=== PATIENT | female | born 1975 | race Caucasian/White ===

== ENCOUNTER 2019-04-22 13:27 | Inpatient (IN) | payer OTHER ==
[~2019-04-22] VITALS: Ht 165.1 cm; Wt 76.2 kg
[2019-04-22] MEDS ORDERED: VANCOMYCIN 1 GM in IV D5W 250 ML IV ONE (14:30)
[2019-04-22] MEDS ORDERED: IV NS 0.9% 1,000 ML BAG IV ONE (14:30)
[2019-04-22] MEDS ORDERED: PIPERACILLIN /TAZOBACTAM 3.375 G in IV D5W 50 ML IV ONE (14:30)
[2019-04-22 14:35] LABS: BASOPHILS % (AUTO) 0.2 % (0.0-2.0); EOSINOPHILS % (AUTO) 0.4 % (0.0-6.0); HEMATOCRIT 32 % (33-45); HEMOGLOBIN 10.6 g/dL (11.5-14.8); LYMPHOCYTES # (AUTO) 2.7 /CMM (0.8-4.8); LYMPHOCYTES % (AUTO) 15.3 % (20.0-44.0); MEAN CORPUSCULAR HGB CONC 33 g/dl (31.0-36.0); MEAN CORPUSCULAR VOLUME 83 fL (82-100); MONOCYTES # (AUTO) 0.8 /CMM (0.1-1.30); MONOCYTES % (AUTO) 4.3 % (2.0-12.0); NEUTROPHILS # (AUTO) 14.3 /CMM (1.8-8.9); NEUTROPHILS % (AUTO) 79.8 % (43.0-81.0); PLATELET COUNT (AUTO) 429 /CMM (150-450); RED BLOOD CELL COUNT(AUTO) 3.84 MIL/uL (4.0-5.2); WHITE BLOOD COUNT (AUTO) 17.9 K/uL (4.3-11.0)
[2019-04-22] MEDS ORDERED: INSU100I14 SQ (15:01)
[2019-04-22 15:05] LABS: ALBUMIN 1.7 g/dL (3.4-5.0); BILIRUBIN,DIRECT 0.1 mg/dL (0.0-0.2); BILIRUBIN,TOTAL 0.3 mg/dL (0.2-1.0); CALCIUM, SERUM 8.2 mg/dL (8.5-10.1); POTASSIUM 4.3 mmol/L (3.5-5.1); TOTAL PROTEIN, SERUM 7.9 g/dL (6.4-8.2)
[2019-04-22] MEDS ORDERED: CT SWABBABLE VALVE TRANS SET 1 EA INFUS.SET MC ONE (15:41)
[2019-04-22] MEDS ORDERED: IV NS 0.9% 250 ML IV ONE (15:41)
[2019-04-22] MEDS ORDERED: IOHEXOL-300 100 ML VIAL IV ONE (15:41)
[2019-04-22] MEDS ORDERED: INSULIN REGULAR, HUMAN 100 UNIT/ML 10 ML VIAL ONE (17:14)
[2019-04-22] MEDS ORDERED: INSULIN REGULAR, HUMAN 100 UNIT/ML 10 ML VIAL SQ ONE (17:30)
[2019-04-22 18:20] VITALS: BP 119/78
[2019-04-22 20:00] VITALS: BP 111/65
[2019-04-22] MEDS ORDERED: ONDANSETRON HCL/PF 4 MG/2 ML VIAL IVP PRN (20:00)
[2019-04-22] MEDS ORDERED: DEXTROSE 50%-WATER 50 ML DISP.SYRIN IV PRN (20:00)
[2019-04-22] MEDS ORDERED: ACETAMINOPHEN 325 MG TABLET PO PRN (20:00)
[2019-04-22] MEDS ORDERED: MAGNESIUM HYDROXIDE 30 ML UDC PO PRN (20:00)
[2019-04-22] MEDS ORDERED: Z GUARD REMEDY 2 OZ OINT TP PRN (20:00)
[2019-04-22] MEDS ORDERED: ZOLPIDEM TARTRATE 5 MG TABLET PO PRN (20:00)
[2019-04-22] MEDS ORDERED: KETOROLAC TROMETHAMINE INJ 30 MG/ML VIAL IV PRN (20:00)
[2019-04-22] MEDS: MORPHINE SULFATE INJ 2 MG/ML DISP.SYRIN IV PRN (20:02)
[2019-04-22] MEDS ORDERED: FEE PK DOSING 1 MIN EA MC ONE (20:05)
[2019-04-22 20:32] VITALS: BP 111/65
[2019-04-22] MEDS: PIPERACILLIN /TAZOBACTAM 3.375 G in IV D5W 100 ML IV SCH (20:54)
[2019-04-22] MEDS: VANCOMYCIN 0.75 GM in IV D5W 250 ML IV SCH (21:15)
[2019-04-22] MEDS: HYDROCODONE/APAP 5/325MG 1 EACH TABLET PO PRN (21:50)
[2019-04-22] MEDS: BLOOD SUGAR DIAGNOSTIC 1 EACH STRIP VI SCH (22:31)
[2019-04-22] MEDS: *INSULIN REGULAR(HUMULIN R)HUM 100 UNIT/ML VIAL SQ PRN (22:33)
[2019-04-22] MEDS: IV NS 0.9% 1,000 ML IV PRN (22:38)
[2019-04-23] MEDS: MORPHINE SULFATE INJ 2 MG/ML DISP.SYRIN IV PRN ×2 (00:23→15:07)
[2019-04-23] MEDS: IV NS 0.9% 1,000 ML IV PRN ×3 (03:40→22:33)
[2019-04-23] MEDS: PIPERACILLIN /TAZOBACTAM 3.375 G in IV D5W 100 ML IV SCH ×2 (04:03→12:26)
[2019-04-23] MEDS: HYDROCODONE/APAP 5/325MG 1 EACH TABLET PO PRN ×3 (04:42→20:40)
[2019-04-23 04:57] LABS: APPEARANCE,URINE SL CLOUDY (CLEAR); BILIRUBIN,URINE NEGATIVE (NEGATIVE); BLOOD, URINE 2+ Ery/uL (NEGATIVE); COLOR,URINE YELLOW (YELLOW); KETONES,URINE NEGATIVE (NEGATIVE); LEUKOCYTE ESTERASE ,URINE NEGATIVE (NEGATIVE); NITRITE, URINE NEGATIVE (NEGATIVE); PROTEIN,URINE 1+ mg/dl (NEGATIVE); UGLUCOSE 3+ mg/dL (NEGATIVE); UROBILINOGEN,URINE 0.2 EU/dL (0.2)
[2019-04-23 05:05] LABS: BACTERIA,URINE Few /HPF (None Seen); RBC,URINE 21-50 /HPF (0-2); SQUAMOUS EPITHELIAL CELL,UR Few /HPF (None Seen); WBC,URINE 21-50 /HPF (0-3)
[2019-04-23] MEDS: VANCOMYCIN 0.75 GM in IV D5W 250 ML IV SCH ×3 (05:05→21:00)
[2019-04-23] MEDS: BLOOD SUGAR DIAGNOSTIC 1 EACH STRIP VI SCH ×4 (06:34→21:00)
[2019-04-23] MEDS: INSULIN REGULAR, HUMAN 100 UNIT/ML 3 ML VIAL SQ PRN ×3 (06:38→17:50)
[2019-04-23 08:00] VITALS: BP 110/66
[2019-04-23 09:42] LABS: BASOPHILS # (AUTO) 0.1 /CMM (0.0-0.2); BASOPHILS % (AUTO) 0.4 % (0.0-2.0); EOSINOPHILS % (AUTO) 1.6 % (0.0-6.0); HEMATOCRIT 29 % (33-45); HEMOGLOBIN 9.8 g/dL (11.5-14.8); LYMPHOCYTES # (AUTO) 3.8 /CMM (0.8-4.8); LYMPHOCYTES % (AUTO) 21.7 % (20.0-44.0); MEAN CORPUSCULAR HGB CONC 33 g/dl (31.0-36.0); MEAN CORPUSCULAR VOLUME 83 fL (82-100); MONOCYTES # (AUTO) 0.8 /CMM (0.1-1.30); MONOCYTES % (AUTO) 4.4 % (2.0-12.0); NEUTROPHILS # (AUTO) 12.7 /CMM (1.8-8.9); NEUTROPHILS % (AUTO) 71.9 % (43.0-81.0); PLATELET COUNT (AUTO) 426 /CMM (150-450); RED BLOOD CELL COUNT(AUTO) 3.54 MIL/uL (4.0-5.2); WHITE BLOOD COUNT (AUTO) 17.7 K/uL (4.3-11.0)
[2019-04-23] MEDS: LOSARTAN POTASSIUM 50 MG TABLET PO SCH (09:43)
[2019-04-23 09:53] LABS: CALCIUM, SERUM 7.7 mg/dL (8.5-10.1); CREATININE 0.9 mg/dL (0.6-1.3); MAGNESIUM 1.4 mg/dL (1.8-2.4); PHOSPHORUS 2.2 mg/dL (2.5-4.9); POTASSIUM 3.8 mmol/L (3.5-5.1)
[2019-04-23 10:04] LABS: THYROID STIMULATING HORMONE 1.875 uIU/mL (0.358-3.74)
[2019-04-23] MEDS ORDERED: K PHOS NEUTRAL 250 MG TABLET PO ONE (13:30)
[2019-04-23 16:00] VITALS: BP 116/75
[2019-04-23] MEDS ORDERED: ZOSYN IVPB 3.375 G in IV D5W 50ml IV SCH (18:00)
[2019-04-23 20:00] VITALS: BP 132/76
[2019-04-23 20:01] VITALS: BP 132/74
[2019-04-23] MEDS: *INSULIN REGULAR(HUMULIN R)HUM 100 UNIT/ML VIAL SQ PRN (21:08)
[2019-04-23] MEDS: ZOSYN IVPB 3.375 G in IV D5W 50ml IV SCH (23:04)
[2019-04-24] MEDS: MORPHINE SULFATE INJ 2 MG/ML DISP.SYRIN IV PRN ×3 (04:42→22:05)
[2019-04-24] MEDS: ZOSYN IVPB 3.375 G in IV D5W 50ml IV SCH ×4 (05:02→23:59)
[2019-04-24] MEDS: VANCOMYCIN 0.75 GM in IV D5W 250 ML IV SCH ×3 (05:38→22:38)
[2019-04-24] MEDS: BLOOD SUGAR DIAGNOSTIC 1 EACH STRIP VI SCH ×4 (05:48→21:45)
[2019-04-24] MEDS: INSULIN REGULAR, HUMAN 100 UNIT/ML 3 ML VIAL SQ PRN ×3 (05:55→18:01)
[2019-04-24 08:00] VITALS: BP 121/74
[2019-04-24] MEDS: LOSARTAN POTASSIUM 50 MG TABLET PO SCH (08:36)
[2019-04-24 16:00] VITALS: BP 133/86
[2019-04-24 16:50] LABS: BASOPHILS % (AUTO) 0.2 % (0.0-2.0); EOSINOPHILS % (AUTO) 1.6 % (0.0-6.0); HEMATOCRIT 31 % (33-45); HEMOGLOBIN 10.5 g/dL (11.5-14.8); LYMPHOCYTES % (AUTO) 27.5 % (20.0-44.0); MEAN CORPUSCULAR HGB CONC 34 g/dl (31.0-36.0); MEAN CORPUSCULAR VOLUME 82 fL (82-100); MONOCYTES % (AUTO) 5.4 % (2.0-12.0); NEUTROPHILS % (AUTO) 65.3 % (43.0-81.0); PLATELET COUNT (AUTO) 528 /CMM (150-450); WHITE BLOOD COUNT (AUTO) 12.1 K/uL (4.3-11.0)
[2019-04-24 16:51] LABS: LYMPHOCYTES # (AUTO) 3.3 /CMM (0.8-4.8); MONOCYTES # (AUTO) 0.6 /CMM (0.1-1.30); NEUTROPHILS # (AUTO) 7.9 /CMM (1.8-8.9)
[2019-04-24 17:00] LABS: CALCIUM, SERUM 8.3 mg/dL (8.5-10.1); MAGNESIUM 1.4 mg/dL (1.8-2.4); PHOSPHORUS 2.9 mg/dL (2.5-4.9); POTASSIUM 3.8 mmol/L (3.5-5.1)
[2019-04-24] MEDS: FLUCONAZOLE (100 MG) 100 MG TABLET PO SCH (18:42)
[2019-04-24] MEDS: Magnesium 1GM/D5W 100ML PREMIX 100 ML IV SCH ×4 (18:42→22:50)
[2019-04-24 19:14] LABS: BILIRUBIN,DIRECT 0.1 mg/dL (0.0-0.2); BILIRUBIN,TOTAL 0.2 mg/dL (0.2-1.0); TOTAL PROTEIN, SERUM 7.5 g/dL (6.4-8.2)
[2019-04-24 19:22] LABS: ALBUMIN 1.4 g/dL (3.4-5.0)
[2019-04-24 20:00] VITALS: BP 132/82
[2019-04-24] MEDS: MUPIROCIN OINT 2% 22 GM TUBE SCH (20:35)
[2019-04-24] MEDS: IV NS 0.9% 1,000 ML IV PRN (21:44)
[2019-04-24] MEDS: *INSULIN REGULAR(HUMULIN R)HUM 100 UNIT/ML VIAL SQ PRN (22:17)
[2019-04-25] MEDS: ZOSYN IVPB 3.375 G in IV D5W 50ml IV SCH ×3 (05:04→17:16)
[2019-04-25 05:23] LABS: CREATININE, URINE 18.6 MG/DL (30.0-125.0); URINE TOTAL PROTEIN 28.3 mg/dL (0-11.9)
[2019-04-25] MEDS: VANCOMYCIN 0.75 GM in IV D5W 250 ML IV SCH ×3 (05:39→21:50)
[2019-04-25] MEDS: BLOOD SUGAR DIAGNOSTIC 1 EACH STRIP VI SCH ×4 (06:43→22:02)
[2019-04-25] MEDS: INSULIN REGULAR, HUMAN 100 UNIT/ML 3 ML VIAL SQ PRN ×4 (06:45→21:48)
[2019-04-25 08:00] VITALS: BP 117/78
[2019-04-25] MEDS: FLUCONAZOLE (100 MG) 100 MG TABLET PO SCH (08:40)
[2019-04-25] MEDS: LOSARTAN POTASSIUM 50 MG TABLET PO SCH (08:40)
[2019-04-25] MEDS: MUPIROCIN OINT 2% 22 GM TUBE SCH ×2 (08:44→22:02)
[2019-04-25 12:07] LABS: *SPE A/G RATIO 0.4 (0.7-1.7); *SPE ALBUMIN 1.9 g/dL (2.9-4.4); *SPE ALPHA-1-GLOBULIN 0.4 g/dL (0.0-0.4); *SPE ALPHA-2-GLOBULIN 0.9 g/dL (0.4-1.0); *SPE GLOBULIN, TOTAL 4.9 g/dL (2.2-3.9); *SPE M-SPIKE Not Observed g/dL (Not Observed); *SPEGAMMA GLOBULIN 2.5 g/dL (0.4-1.8)
[2019-04-25 13:08] LABS: PTH, INTACT 20 pg/mL (15-65)
[2019-04-25 15:55] LABS: CALCIUM, SERUM 7.9 mg/dL (8.5-10.1); CREATININE 0.9 mg/dL (0.6-1.3); POTASSIUM 4.1 mmol/L (3.5-5.1)
[2019-04-25 16:00] VITALS: BP 131/70
[2019-04-25] MEDS: IV NS 0.9% 1,000 ML IV PRN (17:21)
[2019-04-25 20:00] VITALS: BP 118/69
[2019-04-25] MEDS: HYDROCODONE/APAP 5/325MG 1 EACH TABLET PO PRN (21:51)
[2019-04-26] MEDS: ZOSYN IVPB 3.375 G in IV D5W 50ml IV SCH ×5 (00:37→23:01)
[2019-04-26] MEDS: IV NS 0.9% 1,000 ML IV PRN ×2 (05:16→17:14)
[2019-04-26] MEDS: VANCOMYCIN 0.75 GM in IV D5W 250 ML IV SCH ×3 (05:36→21:06)
[2019-04-26] MEDS: HYDROCODONE/APAP 5/325MG 1 EACH TABLET PO PRN ×2 (05:36→20:58)
[2019-04-26] MEDS: BLOOD SUGAR DIAGNOSTIC 1 EACH STRIP VI SCH ×4 (07:45→21:05)
[2019-04-26] MEDS: INSULIN REGULAR, HUMAN 100 UNIT/ML 3 ML VIAL SQ PRN ×3 (07:49→17:08)
[2019-04-26] MEDS: FLUCONAZOLE (100 MG) 100 MG TABLET PO SCH (08:58)
[2019-04-26] MEDS: LOSARTAN POTASSIUM 50 MG TABLET PO SCH (08:58)
[2019-04-26] MEDS: MUPIROCIN OINT 2% 22 GM TUBE SCH ×2 (08:59→21:06)
[2019-04-26 13:54] LABS: CALCIUM, SERUM 8.4 mg/dL (8.5-10.1); POTASSIUM 3.9 mmol/L (3.5-5.1)
[2019-04-26 15:00] VITALS: BP 122/71
[2019-04-26] MEDS: MORPHINE SULFATE INJ 2 MG/ML DISP.SYRIN IV PRN (15:44)
[2019-04-26 20:00] VITALS: BP 127/92
[2019-04-26] MEDS: *INSULIN REGULAR(HUMULIN R)HUM 100 UNIT/ML VIAL SQ PRN (21:11)
[2019-04-27] MEDS: IV NS 0.9% 1,000 ML IV PRN ×2 (01:37→16:01)
[2019-04-27] MEDS: MORPHINE SULFATE INJ 2 MG/ML DISP.SYRIN IV PRN ×2 (01:46→21:12)
[2019-04-27] MEDS: ZOSYN IVPB 3.375 G in IV D5W 50ml IV SCH ×4 (05:07→23:02)
[2019-04-27] MEDS: VANCOMYCIN 0.75 GM in IV D5W 250 ML IV SCH (05:43)
[2019-04-27] MEDS: HYDROCODONE/APAP 5/325MG 1 EACH TABLET PO PRN (05:45)
[2019-04-27] MEDS: BLOOD SUGAR DIAGNOSTIC 1 EACH STRIP VI SCH ×4 (06:20→21:33)
[2019-04-27] MEDS: INSULIN REGULAR, HUMAN 100 UNIT/ML 3 ML VIAL SQ PRN ×3 (06:22→17:49)
[2019-04-27 08:00] VITALS: BP 120/72
[2019-04-27] MEDS: FLUCONAZOLE (100 MG) 100 MG TABLET PO SCH (08:42)
[2019-04-27] MEDS: MUPIROCIN OINT 2% 22 GM TUBE SCH ×2 (08:42→21:13)
[2019-04-27] MEDS: LOSARTAN POTASSIUM 50 MG TABLET PO SCH (08:42)
[2019-04-27] MEDS: VANCOMYCIN 500 MG in IV D5W 100 ML IV SCH ×2 (15:06→22:11)
[2019-04-27 16:14] VITALS: BP 124/86
[2019-04-27 20:00] VITALS: BP 131/66
[2019-04-27] MEDS: *INSULIN REGULAR(HUMULIN R)HUM 100 UNIT/ML VIAL SQ PRN (21:36)
[2019-04-28] MEDS: IV NS 0.9% 1,000 ML IV PRN (01:29)
[2019-04-28] MEDS: MORPHINE SULFATE INJ 2 MG/ML DISP.SYRIN IV PRN (01:49)
[2019-04-28] MEDS: ZOSYN IVPB 3.375 G in IV D5W 50ml IV SCH ×4 (05:06→23:35)
[2019-04-28] MEDS: BLOOD SUGAR DIAGNOSTIC 1 EACH STRIP VI SCH ×4 (05:52→21:44)
[2019-04-28] MEDS: INSULIN REGULAR, HUMAN 100 UNIT/ML 3 ML VIAL SQ PRN ×3 (06:01→18:47)
[2019-04-28] MEDS: VANCOMYCIN 500 MG in IV D5W 100 ML IV SCH ×3 (06:03→22:01)
[2019-04-28 08:19] VITALS: BP 131/89
[2019-04-28] MEDS: FLUCONAZOLE (100 MG) 100 MG TABLET PO SCH (09:45)
[2019-04-28] MEDS: LOSARTAN POTASSIUM 50 MG TABLET PO SCH (09:46)
[2019-04-28] MEDS: HYDROCODONE/APAP 5/325MG 1 EACH TABLET PO PRN ×2 (09:50→19:51)
[2019-04-28] MEDS: MUPIROCIN OINT 2% 22 GM TUBE SCH ×2 (09:51→21:39)
[2019-04-28 09:53] LABS: IRON, SERUM 63 ug/dl (50-175); TOTAL IRON BINDING CAPACITY 220 ug/dl (250-450)
[2019-04-28 10:17] LABS: CALCIUM, SERUM 8.9 mg/dL (8.5-10.1)
[2019-04-28 10:19] LABS: FERRITIN 128 ng/mL (8-388)
[2019-04-28 16:00] VITALS: BP 108/75
[2019-04-28 20:50] VITALS: BP 128/73
[2019-04-28] MEDS: *INSULIN REGULAR(HUMULIN R)HUM 100 UNIT/ML VIAL SQ PRN (21:39)
[2019-04-29] MEDS: IV NS 0.9% 1,000 ML IV PRN ×2 (03:25→20:51)
[2019-04-29] MEDS: ZOSYN IVPB 3.375 G in IV D5W 50ml IV SCH ×4 (05:03→23:28)
[2019-04-29 05:06] LABS: *PEUR ALPHA-1-GLOBULIN 4.4 % (.); *PEUR ALPHA-2-GLOBULIN 7.8 % (.); *PEUR BETA GLOBULIN 27.6 % (.); *PEUR GAMMA GLOBULIN 42.1 % (.)
[2019-04-29] MEDS: BLOOD SUGAR DIAGNOSTIC 1 EACH STRIP VI SCH ×4 (06:38→21:15)
[2019-04-29] MEDS: INSULIN REGULAR, HUMAN 100 UNIT/ML 3 ML VIAL SQ PRN ×3 (06:44→17:10)
[2019-04-29 06:53] LABS: BASOPHILS % (AUTO) 0.4 % (0.0-2.0); HEMATOCRIT 33 % (33-45); HEMOGLOBIN 11.1 g/dL (11.5-14.8); LYMPHOCYTES # (AUTO) 4.1 /CMM (0.8-4.8); LYMPHOCYTES % (AUTO) 36.4 % (20.0-44.0); MEAN CORPUSCULAR HGB CONC 34 g/dl (31.0-36.0); MEAN CORPUSCULAR VOLUME 83 fL (82-100); MONOCYTES # (AUTO) 0.5 /CMM (0.1-1.30); MONOCYTES % (AUTO) 4.7 % (2.0-12.0); NEUTROPHILS # (AUTO) 6.4 /CMM (1.8-8.9); NEUTROPHILS % (AUTO) 56.5 % (43.0-81.0); PLATELET COUNT (AUTO) 566 /CMM (150-450); RED BLOOD CELL COUNT(AUTO) 4.01 MIL/uL (4.0-5.2); WHITE BLOOD COUNT (AUTO) 11.4 K/uL (4.3-11.0)
[2019-04-29 07:24] LABS: CALCIUM, SERUM 8.5 mg/dL (8.5-10.1); CREATININE 0.9 mg/dL (0.6-1.3); POTASSIUM 4.3 mmol/L (3.5-5.1)
[2019-04-29] MEDS: VANCOMYCIN 500 MG in IV D5W 100 ML IV SCH ×3 (07:34→22:05)
[2019-04-29 08:00] VITALS: BP 105/70
[2019-04-29 08:18] LABS: IRON, SERUM 54 ug/dl (50-175); TOTAL IRON BINDING CAPACITY 244 ug/dl (250-450)
[2019-04-29 08:27] LABS: FERRITIN 118 ng/mL (8-388)
[2019-04-29] MEDS: LOSARTAN POTASSIUM 50 MG TABLET PO SCH (08:53)
[2019-04-29] MEDS: FLUCONAZOLE (100 MG) 100 MG TABLET PO SCH (08:53)
[2019-04-29] MEDS: MUPIROCIN OINT 2% 22 GM TUBE SCH ×2 (08:59→20:07)
[2019-04-29 12:00] VITALS: BP 145/78
[2019-04-29] MEDS: MORPHINE SULFATE INJ 2 MG/ML DISP.SYRIN IV PRN (12:44)
[2019-04-29 16:00] VITALS: BP_SYST 109; BP_SYST 114; BP_DIAS 65; BP_DIAS 68
[2019-04-29 20:00] VITALS: BP 129/84
[2019-04-29] MEDS: HYDROCODONE/APAP 5/325MG 1 EACH TABLET PO PRN (20:03)
[2019-04-29] MEDS: *INSULIN REGULAR(HUMULIN R)HUM 100 UNIT/ML VIAL SQ PRN (21:14)
[2019-04-30] MEDS: ZOSYN IVPB 3.375 G in IV D5W 50ml IV SCH ×3 (05:07→18:13)
[2019-04-30] MEDS: MORPHINE SULFATE INJ 2 MG/ML DISP.SYRIN IV PRN (05:13)
[2019-04-30] MEDS: VANCOMYCIN 500 MG in IV D5W 100 ML IV SCH ×2 (06:02→13:45)
[2019-04-30] MEDS: INSULIN REGULAR, HUMAN 100 UNIT/ML 3 ML VIAL SQ PRN ×3 (06:17→18:21)
[2019-04-30] MEDS: BLOOD SUGAR DIAGNOSTIC 1 EACH STRIP VI SCH ×3 (06:37→18:14)
[2019-04-30 07:57] LABS: CALCIUM, SERUM 8.1 mg/dL (8.5-10.1); POTASSIUM 4.4 mmol/L (3.5-5.1)
[2019-04-30 08:00] VITALS: BP 107/65
[2019-04-30] MEDS: FLUCONAZOLE (100 MG) 100 MG TABLET PO SCH (10:14)
[2019-04-30] MEDS: LOSARTAN POTASSIUM 50 MG TABLET PO SCH (10:15)
[2019-04-30] MEDS: MUPIROCIN OINT 2% 22 GM TUBE SCH (10:15)
[2019-04-30] MEDS: HYDROCODONE/APAP 5/325MG 1 EACH TABLET PO PRN (12:26)
[2019-04-30 16:03] VITALS: BP 101/60
[2019-04-30] MEDS ORDERED: LACTOBACILLUS RHAMNOSUS GG 1 EACH CAP.SPRINK PO SCH (17:00)
[2019-04-30] MEDS: IV NS 0.9% 1,000 ML IV PRN (18:22)
== END 2019-04-30 19:17 | DRG 720 ==
LOC: ER 13:34 → MED 17:25
PROVIDERS: ADMIT Nurse Practitioner Acute Care; ATTEND Hospitalist
PROC: B548ZZA Ultrasonography of Superior Vena Cava, Guidance (ICD-10-PCS; principal; 2019-04-29)
PROC: 02HV33Z Insertion of Infusion Device into Superior Vena Cava, Percutaneous Approach (ICD-10-PCS; principal; 2019-04-29)
DX: A41.9 Sepsis, unspecified organism (principal); E43 Unspecified severe protein-calorie malnutrition; E11.69 Type 2 diabetes mellitus with other specified complication; E11.65 Type 2 diabetes mellitus with hyperglycemia; L02.213 Cutaneous abscess of chest wall; E87.1 Hypo-osmolality and hyponatremia; L03.313 Cellulitis of chest wall; M00.9 Pyogenic arthritis, unspecified; Z79.4 Long term (current) use of insulin; F41.9 Anxiety disorder, unspecified; F32.9 Major depressive disorder, single episode, unspecified; N12 Tubulo-interstitial nephritis, not specified as acute or chronic; Z90.710 Acquired absence of both cervix and uterus; D64.9 Anemia, unspecified; D63.8 Anemia in other chronic diseases classified elsewhere; M86.9 Osteomyelitis, unspecified; L02.11 Cutaneous abscess of neck; F15.90 Other stimulant use, unspecified, uncomplicated
CPT/HCPCS: 36415; 36569; 71045-TC; 71260-TC; 80048-TC; 80061-TC; 80076-TC; 80202-TC; 80305; 81000-TC; 82570-TC; 82728-TC; 82962-TC; 83540-TC; 83605-TC; 83735-TC; 83970; 84100-TC; 84155; 84155-TC; 84156; 84165; 84166; 84439-TC; 84443-TC; 84702-TC; 84703-TC; 85025-TC; 85652-TC; 85730-TC; 86140-TC; 87040-TC; 87081-TC; 87086-TC; 87806; 93307-TC; G0378; J1815; J1885; J2270; J2543; J3370; J3475; J7030; J7050; J7060; Q9967